=== PATIENT | female | born 1955 | race Caucasian/White ===

== ENCOUNTER 2018-10-28 16:18 | Observation (INO) | payer MEDICARE ==
[2018-10-28] MEDS ORDERED: Ondansetron PF 4 MG/2 ML Vial IVP PRN (20:23)
[2018-10-28] MEDS ORDERED: Acetaminophen 325 MG TAB PO PRN (20:23)
[2018-10-28] MEDS ORDERED: Ondansetron ODT 4 MG TAB SL PRN (20:23)
[2018-10-28 21:30] VITALS: BMI 42.7
[2018-10-28 21:50] LABS: Troponin I Less than 0.010 ng/mL (< 0.028)
[2018-10-28] MEDS ORDERED: Dextrose 5% in Water 1,000 ML IV PRN ×2 (21:53→22:38)
[2018-10-28] MEDS ORDERED: diphenhydrAMINE 50 MG CAP PO PRN (21:53)
[2018-10-28] MEDS ORDERED: HumaLOG 300 UNITS/3 ML VIAL SC PRN ×2 (21:53)
[2018-10-28] MEDS ORDERED: Dextrose 50% Abboject 50 ML SYRINGE IVP PRN (21:53)
[2018-10-28] MEDS ORDERED: diphenhydrAMINE 25 MG CAP PO PRN (22:36)
[2018-10-28] MEDS ORDERED: PROVENTIL INHALER 6.7 G (200 INHALATIONS) INH PRN (22:36)
[2018-10-28] MEDS ORDERED: ALPRAZolam 0.5 MG TAB PO PRN (22:36)
[2018-10-28] MEDS ORDERED: Nitroglycerin 0.4 MG TAB (25 Tab Bottle) PO PRN (22:38)
[2018-10-28] MEDS ORDERED: Insulin Regular 300 UNITS/3 ML VIAL SC PRN ×2 (22:38)
[2018-10-28] MEDS ORDERED: Dextrose 50% Abboject 50 ML SYRINGE SLOW IVP PRN (22:38)
[2018-10-28] MEDS ORDERED: Calcium Carbonate 500 MG ChewTAB PO PRN (22:38)
[2018-10-29 00:10] LABS: Troponin I Less than 0.010 ng/mL (< 0.028)
[2018-10-29] MEDS: Nitroglycerin 2% Ointment 1 INCH/1 GM Packet TOP SCH ×3 (05:44→22:11)
[2018-10-29 06:30] LABS: Cardiac Risk 2.5 (Less than 4.5)
[2018-10-29] MEDS ORDERED: Atorvastatin Calcium 20 MG TAB PO SCH ×2 (09:00→21:00)
[2018-10-29] MEDS ORDERED: Regadenoson 0.4 MG/5 ML SYRINGE ONE (09:40)
--- NOTE | 2018-10-29 11:25 | HP ---
CHIEF COMPLAINT: Chest pain. HISTORY OF PRESENT ILLNESS: The patient is a 63-year-old female, who started having some recurrent chest pains since yesterday morning. They are located in front of the chest lasting just few seconds, not associated with any nausea, vomiting, or shortness of breath. In the beginning, she had some warm flash and tingling of her body when this started, but not with subsequent episodes. She had only one chest pain this morning lasting just few seconds. Her PCP is . PAST MEDICAL HISTORY: Positive for; 1. TIA. 2. Diabetes mellitus. 3. Pacemaker. PAST SURGICAL HISTORY: 1. Left rotator cuff. 2. Right ankle with plate and pin surgery. 3. Appendectomy. 4. Cholecystectomy. 5. Tonsillectomy. 6. Partial hysterectomy. SOCIAL HISTORY: She smokes one pack per day. She used to smoke one and half pack per day for the last 30 years. She does not use any alcohol. She does not use any illicit drugs. FAMILY HISTORY: Father of natural causes at the age of 89. Mother had pancreatic cancer and CABG x3, and she in her 50s. ALLERGIES: CODEINE, HYDROCODONE, PENICILLIN G, SULFA, TRAMADOL, ULTRAM, AND ZOLPIDEM. CURRENT MEDICATIONS: 1. Metformin 500 mg twice a day. 2. Aspirin one tablet 81 mg once a day. 3. Clopidogrel 75 mg once a day. 4. Atorvastatin 20 mg once a day. REVIEW OF SYSTEMS: All 14 systems were reviewed, and symptoms were negative except for those which are mentioned in the HPI. PHYSICAL EXAMINATION: GENERAL: She is not in any distress during my visit. VITAL SIGNS: Her blood pressure is 113/57, pulse is 63, temperature is 97.7, respiratory rate is 16, and O2 saturation is 92% on room air. HEENT: Her head is atraumatic and normocephalic. Eyes, PERRLA. Sclerae are nonicteric. Conjunctiva pinkish. Oral mucosa is moist. NECK: Supple, obese. LUNGS: Few wheezes bilaterally. No rales. HEART: S1 and S2 distant. No S3. No S4. ABDOMEN: Obese, tender, somewhat distended. Bowel sounds are present. No organomegaly. EXTREMITIES: No clubbing, cyanosis, or edema. She has good pulses on both tibialis posterior and dorsalis pedis arteries, similar bilaterally. NEUROLOGICAL: She is alert and oriented x4. There are no any sensory or motor deficits present. Cranial nerves are intact. Her BMI is 42.7, so she is very obese. LABORATORY DATA: Normal chemistry. Normal CBC. Troponin I less than 0.010. She had two additional sets of troponins, which are all negative. Triglyceride 78, total cholesterol 103, LDL 46, and HDL 41. DIAGNOSTIC DATA: EKG showed atrial paced rhythm with prolonged AV conduction, incomplete right bundle-branch block, and nonspecific ST-T wave abnormalities. This was personally reviewed by me. Chest x-ray did not show any abnormalities. IMPRESSION: 1. Recurrent chest pain of unclear etiology at this point. Three sets of cardiac enzymes were done, and acute coronary syndrome was ruled out. She is set up for echo, Cardiology consultation, and stress test this morning. 2. Diabetes mellitus. We will obtain hemoglobin A1c since her glucose was elevated at 304 last night, this morning is 124. 3. History of transient ischemic attack. 4. Pacemaker. 5. Coronary artery disease based on cardiac cath done in 2013, with 10% blockages. PLAN: Observation. Condition is fair. Activity, bedrest and bathroom privileges. As mentioned above, she is set up for Cardiology consultation, echocardiogram, and stress test. We will continue her home medications. She will stay on heart-healthy diabetic diet, and she will have SCDs for DVT prophylaxis and no Lovenox since she is on clopidogrel. Job ID: [id number]
[2018-10-29] MEDS: Famotidine/PF 20 mg/2ml Vial SLOW IVP SCH ×2 (12:31→20:22)
[2018-10-29] MEDS: Cyanocobalamin (Vitamin B-12) 1,000 MCG TAB PO SCH (12:51)
[2018-10-29] MEDS: Clopidogrel Bisulfate 75 MG TAB PO SCH (12:51)
[2018-10-29] MEDS: Ubidecarenone 50 MG CAP PO SCH (12:51)
[2018-10-29] MEDS: Famotidine 20 MG TAB PO SCH ×2 (12:51→20:20)
[2018-10-29] MEDS: Aspirin 81 mg Enteric Coated Tablet PO SCH (12:51)
[2018-10-29] MEDS: metFORMIN 500 MG TAB PO SCH (17:06)
--- NOTE | 2018-10-30 01:09 | CON ---
DATE OF CONSULTATION: HISTORY OF PRESENT ILLNESS: Carley Maria is a 63-year-old white female being followed since February 2014. At that time, she was admitted for bradycardia. Prior to that in December 2011, she was seen by a neurologist in [place] for TIA symptoms and she states she had an echocardiogram and Cardiolite test and was told that everything was normal. When she presented in February 2014 to the emergency room in [place], she was feeling very weak and tired. She had these sensations for one week and did have one fall at home, but denied any loss consciousness or syncope. She was falling to one side when she tried to walk. She denied any chest discomfort or shortness of breath. She was found to have extreme sinus bradycardia with heart rates in the 30s. She continued to have heart rates in the 30s and 40s after transfer and at times, her heart rate would drop below 30. On that day, she had 2 episodes of sharp left-sided chest pain at different locations lasting less than 1 minute each. Echo was technically difficult with left ventricular enlargement. Normal left ventricular systolic function with ejection fraction of 50% to 55%. Mild mitral and tricuspid regurgitation. She was admitted to the ICU, placed on dobutamine which increased her rate. She underwent cardiac catheterization and was found to have a 20% mid circumflex lesion, but otherwise, unremarkable coronary arteries. A permanent dual-chamber pacemaker was then placed, and the following day, she was discharged. She then came for a 3-month pacemaker followup complaining that she has continued to feel very weak and tired and did not have much energy. She denied any syncopal episodes. She had significant amounts of high atrial rates starting within several days after pacemaker placement. Pacemaker was interrogated, and there was no atrial sensing or capture. The ventricular arc continued to show normal function. Chest x-ray showed that the atrial lead had been pulled back into the pacer pocket. However, the ventricular lead remained in place. She then underwent placement of a new atrial lead. 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 Since that time, she has been followed in the office. At almost every followup, she complains of sharp pain in her chest lasting for 2 or 3 seconds. At times, I have even paced both the atrial and ventricular leads at the maximum output of 7.5 V and she is unaware of that at all. I doubt that her sharp pain has anything to do with her pacemaker or myocardial ischemia. She now is admitted again with the same type of complaint with sharp pain in her chest lasting a few seconds. She has not had any recent syncope. PAST MEDICAL HISTORY: Diabetes, morbid obesity, history of TIA, hypertension, hypercholesterolemia. OPERATIONS: Pacemaker placement and then replacement of the atrial lead due to pacemaker-twiddler's syndrome, left rotator cuff repair, ORIF of the right leg twice, appendectomy, cholecystectomy, tonsillectomy, partial hysterectomy, removal of ovarian cyst which ruptured with an oophorectomy. MEDICATIONS: 1. Metformin 500 mg b.i.d. 2. Aspirin 81 daily. 3. Clopidogrel 75 daily. 4. Atorvastatin 20 daily. 5. Albuterol inhaler. SOCIAL HISTORY: She continues to smoke 1 pack per day. She does not drink. FAMILY HISTORY: Mother had CABG. REVIEW OF SYSTEMS: A 10-point review of systems is otherwise unremarkable. PHYSICAL EXAMINATION: VITAL SIGNS: 111/53, pulse of 70. HEENT: PERRL. NECK: Supple. CHEST: Clear. CARDIAC: S1 and S2 normal without any S3, S4, or murmurs. ABDOMEN: Obese. Normal bowel sounds. No tenderness. EXTREMITIES: Revealed no clubbing, cyanosis, or edema. NEUROLOGICAL: Grossly intact. SKIN: Warm and dry. MUSCULOSKELETAL: Revealed no palpable chest wall tenderness. LABORATORY DATA: EKG is not present on the chart. However, her EKG at the time of Cardiolite revealed sinus rhythm with incomplete right bundle-branch block and occasional PACs. Interrogation of the pacemaker revealed 3 mode switches, 0 atrial high rates, 1 ventricular high rate on October 08, lasting 5 seconds. Atrial sensing 99.7%, atrial pacing 95.8. Cardiac enzymes were unremarkable. Blood work in [place] revealed hemoglobin 16.6, hematocrit 48.2, white count 9260, platelets 225,000. Electrolytes normal. Creatinine 1.0, BUN 12.8. Cardiac enzymes, as stated, have been unremarkable on further evaluation here. Cholesterol 103, triglycerides 78, HDL 41, and LDL 46. IMPRESSION: 1. Noncardiac chest pain. She has complained of this sharp pain lasting several seconds for the last 4 years and was even complaining of it at the time when she underwent cardiac catheterization in 2013. 2. Minimal coronary artery disease in 2013 with 20% mid circumflex lesion. 3. Status post pacemaker placement for heart rates in the 20s and 30s in 2013. 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 5. Diabetes mellitus. 6. The patient continues to smoke. 7. Hyperlipidemia under good control. 8. History of transient ischemic attack. 9. Morbid obesity. 10. Smoker. PLAN: The patient is undergoing adenosine Cardiolite testing. Her current pain certainly does not seem to be cardiac in nature and has been present ever since she underwent catheterization 4 years ago. Job ID: [id number]
[2018-10-30] MEDS: Nitroglycerin 2% Ointment 1 INCH/1 GM Packet TOP SCH (06:02)
[2018-10-30] MEDS: Clopidogrel Bisulfate 75 MG TAB PO SCH (09:24)
[2018-10-30] MEDS: Aspirin 81 mg Enteric Coated Tablet PO SCH (09:24)
[2018-10-30] MEDS: Ubidecarenone 50 MG CAP PO SCH (09:24)
[2018-10-30] MEDS: Famotidine 20 MG TAB PO SCH (09:25)
[2018-10-30] MEDS: metFORMIN 500 MG TAB PO SCH (09:25)
[2018-10-30] MEDS: Cyanocobalamin (Vitamin B-12) 1,000 MCG TAB PO SCH (09:25)
[2018-10-30] MEDS: Famotidine/PF 20 mg/2ml Vial SLOW IVP SCH (09:26)
--- NOTE | 2018-10-30 10:25 | NM ---
CARDIAC SPECT: HISTORY: A 63-year-old male with chest pain, diabetes, pacemaker implant. TECHNIQUE: A myocardial perfusion scan is performed using the single-isotope 2-day protocol with 13 mCi Techneti um 99m sestamibi injected intravenously for stress and rest images. Pharmacologic stress with LexiSc an is monitored and interpreted by Dr. Bahena. FINDINGS: Homogeneous tracer distribution is seen in the myocardial segments on stress and rest images without fixed or reversible defects. GATED SPECT LVEF: 86%. WALL MOTION EXAM: Normal. IMPRESSION: Normal myocardial perfusion scan. POS: SUBHASH
[2018-10-30 12:01] VITALS: BP 132/94; TEMP 97.6
--- NOTE | 2018-10-31 04:40 | DIS ---
DATE OF ADMISSION: 10/28/2018 DATE OF DISCHARGE: 10/30/2018 ALLERGIST/PEDIATRIC PULMONOLOGIST: Dr Amanuel Bahena, Cardiology Service. FINAL DIAGNOSES: 1. Chest pain, acute coronary syndrome was ruled out. 2. Diabetes mellitus. 3. History of transient ischemic attack. 4. Coronary artery disease based on 2014 cardiac catheterization 10% to 20% at most blockages. 5. Pacemaker. 6. Morbid obesity. 7. 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 HOSPITAL COURSE: The patient is a 63-year-old female, who was admitted to the hospital with chest pain located in the front of the chest, lasting just few seconds recurrent with multiple episodes of that. It was not associated with any nausea, shortness of breath, or vomiting. She was evaluated in the emergency room. Her 1st troponin was less than 0.01. Also, the 2 additional sets were within normal limits. Her EKG showed atrial paced rhythm with prolonged AV conduction, incomplete right bundle branch block, and nonspecific ST-T wave changes. Chest x-ray was within normal limits. The patient got admitted to the floor for observation. She was set up for cardiology consultation and stress test and echocardiogram. The patient underwent stress testing, nuclear medicine, which were negative. Ejection fraction of the left ventricle was estimated at 86%. Wall motion was normal. The patient was seen by Dr. Bahena who did not think this was cardiac pain. The patient completed her echocardiogram, which showed 50% to 55% LV EF with some diastolic dysfunction. Aortic valve sclerosis and mild tricuspid regurgitation with mild pulmonary regurgitation. The patient is doing well. The pain has gone completely. She does not have much complaints to offer. I counseled her about her obesity and necessity to lose at least 10% of her weight, which would be 22 pounds. She agreed and she will try to do that. She is discharged home in good condition. She is seen and examined and evaluated before she is discharged. PHYSICAL EXAMINATION: LUNGS: Clear. HEART: S1 and S2, normal. No S3, no S4. No any murmur. ABDOMEN: Soft, nontender, and obese. EXTREMITIES: 1+ peripheral edema similar bilaterally. NEUROLOGIC: Intact. DIET: She will stay on diabetic diet 2000 calories. ACTIVITIES: As tolerated. RECOMMENDATIONS: Recommend her to follow up with her primary care physician in 1 week and she has an appointment with Dr. Bahena, her academic affairs manager, set up for November 2018. She will follow up with him. TIME SPENT: Time spent on this discharge is less than 30 minutes. Job ID: [id number]
--- NOTE | 2018-10-31 13:48 | EKG ---
Test Reason : Blood Pressure : / mmHG Vent. Rate : 062 BPM Atrial Rate : 061 BPM P-R Int : 220 ms QRS Dur : 102 ms QT Int : 424 ms P-R-T Axes : 016 006 063 degrees QTc Int : 430 ms Atrial-paced rhythm with prolonged AV conduction Incomplete right bundle branch block Nonspecific T wave abnormality Abnormal ECG Confirmed by MARLEY MULLEN ([id number]), primer expeditor and drier CATHRYN MCGARRY ([id number]) on 10/31/2018 1:47:59 PM Referred By: Confirmed By:MARLEY MULLEN
== END 2018-10-30 14:08 | disposition home or self-care (01) ==
LOC: ERS 16:18 → 2SW 20:23
PROVIDERS: ADMIT Internal Medicine; ATTEND Internal Medicine
DX: R07.89 Other chest pain (principal); E11.9 Type 2 diabetes mellitus without complications; F17.210 Nicotine dependence, cigarettes, uncomplicated; I25.10 Atherosclerotic heart disease of native coronary artery without angina pectoris; E78.00 Pure hypercholesterolemia, unspecified; E66.01 Morbid (severe) obesity due to excess calories; Z68.41 Body mass index [BMI] 40.0-44.9, adult; Z86.73 Personal history of transient ischemic attack (TIA), and cerebral infarction without residual deficits; Z79.02 Long term (current) use of antithrombotics/antiplatelets; Z79.82 Long term (current) use of aspirin; Z79.84 Long term (current) use of oral hypoglycemic drugs; Z79.899 Other long term (current) drug therapy; Z88.0 Allergy status to penicillin; Z88.2 Allergy status to sulfonamides; Z88.5 Allergy status to narcotic agent; Z88.8 Allergy status to other drugs, medicaments and biological substances; Z95.0 Presence of cardiac pacemaker
CPT/HCPCS: 78452; 80061; 82962 ×3; 84484 ×2; 93005; 93017; 93306; 94760; 99285; A9500; G0378 ×2; 36415; 36416; J2785